=== PATIENT | female | born 1930 | race Caucasian/White ===

== ENCOUNTER 2016-05-25 18:01 | Observation (INO) | payer MEDICARE, BC ==
[2016-05-25] MEDS ORDERED: SODIUM CHLORIDE 0.9% 1,000 ML IV STA ×2 (18:30)
[2016-05-25 18:53] LABS: Basophils # (A) 0.1 k/uL (0-0.2); Basophils % (A) 1 %; CH 34.4; CHCM 34.6; Eosinophils # (A) 0.7 k/uL (0-0.7); Eosinophils % (A) 8 %; HCT 38.1 % (34.0-46.0); HDW 3.06; HGB 13.1 gm/dL (11.4-16.0); Luc # (Auto) 0.18; Luc % (Auto) 2; Lymphocytes # (A) 1.7 k/uL (1.0-4.8); Lymphocytes % (A) 19 %; MCH 34.3 pg (25.0-35.0); MCHC 34.3 g/dL (31.0-37.0); MCV 100.1 fL (80.0-100.0); Macrocytosis Slight; Mean Platelet Volume 8.6; Monocytes # (A) 0.6 k/uL (0-1.0); Monocytes % (A) 7 %; Neutrophils # (A) 5.6 k/uL (1.3-7.7); Neutrophils % (A) 64 %; RBC 3.81 m/uL (3.80-5.40); RDW 14.2 % (11.5-15.5); WBC 8.8 k/uL (3.8-10.6); WBC (Perox) 9.09
[2016-05-25] MEDS ORDERED: MORPHINE SULFATE 4 MG/ML SYRINGE IVP STA (18:55)
--- NOTE | 2016-05-25 18:57 | ED ---
General Adult HPI - General Source: patient, RN notes reviewed, old records reviewed Mode of arrival: wheelchair Limitations: no limitations <Brody Murray - Last Filed: 05/25/16 18:56> <Regino Lewis - Last Filed: 05/25/16 22:35> - General Chief complaint: Weakness Stated complaint: Weakness Time Seen by Provider: 05/25/16 18:55 - History of Present Illness Initial comments: This is a 86-year-old female ER for evaluation of headache weakness heart fluttering not feeling well. He says significant and extensive list of medical core morbidities, patient started with headache for a few days and generally feeling weak decreased appetite and not feeling well. Denies fevers, but is complaining of headache as well. Headaches are today with no modifying factors or pain, denies neurological deficit. Patient is blind, and no new sono New Vision issues, no hearing changes or deficits. No neurological deficits. Patient denies recent fever cough congestion shortness of breath or abdominal pain. (Brody Murray) - Related Data Home Medications Medication Instructions Recorded Confirmed ALPRAZolam [Xanax] 0.25 mg PO HS 12/14/13 05/25/16 Acetaminophen/Diphenhydramine 1 tab PO HS 12/14/13 05/25/16 [Tylenol Pm] Allopurinol [Zyloprim] 300 mg PO DAILY 12/14/13 05/25/16 Aspirin 81 mg PO BID 12/14/13 05/25/16 Insulin NPH Hum/Reg Insulin Hm 15 unit SQ BID 12/14/13 05/25/16 [NovoLIN 70-30 100 UNIT/ML VIAL] Potassium Chloride [K-Tab ER] 10 meq PO DAILY 12/14/13 05/25/16 Simvastatin [Zocor] 80 mg PO DAILY 12/14/13 05/25/16 ALPRAZolam [Xanax] 0.25 mg PO TID PRN 12/15/13 05/25/16 Nitroglycerin Sl Tabs [Nitrostat] 0.4 mg SL Q5M PRN 12/15/13 05/25/16 Albuterol Nebulized [Ventolin 2.5 mg INHALATION RT-TID PRN 05/25/16 05/25/16 Nebulized] Furosemide [Lasix] 40 mg PO DAILY 05/25/16 05/25/16 Allergies Allergy/AdvReac Type Severity Reaction Status Date / Time codeine Allergy Unknown Verified 05/25/16 19:06 hydrochlorothiazide Allergy Rash/Hives Verified 05/25/16 19:06 [From Aldactazide] Iodinated Contrast Media - Allergy Unknown Verified 05/25/16 19:06 Oral and [Iodinated Contrast Media - IV Dye] spironolactone Allergy Rash/Hives Verified 05/25/16 19:06 [From Aldactazide] Review of Systems ROS Other: All systems not noted in ROS Statement are negative. <Brody Murray - Last Filed: 05/25/16 18:56> ROS Other: All systems not noted in ROS Statement are negative. <Regino Lewis - Last Filed: 05/25/16 22:35> ROS Statement: Those systems with pertinent positive or pertinent negative responses have been documented in the HPI. 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 Last Myocardial Infarction Date:: 1986 History of Any Multi-Drug Resistant Organisms: None Reported Past Surgical History: Breast Surgery, Cholecystectomy, Coronary Bypass/CABG, Hysterectomy, Orthopedic Surgery Additional Past Surgical History / Comment(s): . LUMPECTOMY-BENIGN MASS.RT ARM WAS BROKEN HAD ORIF HAS PLATE/SCREWS. carpal tnnel, CATARARCTS. LT CAROTID ENDARTERECTOMY Past Anesthesia/Blood Transfusion Reactions: No Reported Reaction Past Psychological History: No Psychological Hx Reported Smoking Status: Former smoker Past Alcohol Use History: None Reported Additional Past Alcohol Use History / Comment(s): STARTED SMOKING AT AGE 12, SMOKES 1/2 PPD. HAD QUIT FOR 23 YEARS THEN RESTARTED AFTER STROKE WHEN SHE WENT BLIND. Past Drug Use History: None Reported - Past Family History Father Family Medical History: Myocardial Infarction (OK), Pulmonary Embolus Additional Family Medical History / Comment(s): AT AGE 72-STROKE Mother Family Medical History: CVA/TIA Additional Family Medical History / Comment(s): AT AGE 67- CEREBRAL HEMMORAGE <Brody Murray - Last Filed: 05/25/16 18:56> General Exam Limitations: no limitations General appearance: alert, in no apparent distress Head exam: Present: atraumatic, normocephalic, normal inspection Eye exam: Present: normal appearance, PERRL, EOMI. Absent: scleral icterus, conjunctival injection, periorbital swelling ENT exam: Present: normal exam, mucous membranes moist Neck exam: Present: normal inspection. Absent: tenderness, meningismus, lymphadenopathy Respiratory exam: Present: normal lung sounds bilaterally. Absent: respiratory distress, wheezes, rales, rhonchi, stridor Cardiovascular Exam: Present: regular rate, normal rhythm, normal heart sounds. Absent: systolic murmur, diastolic murmur, rubs, gallop, clicks GI/Abdominal exam: Present: soft, normal bowel sounds. Absent: distended, tenderness, guarding, rebound, rigid Extremities exam: Present: normal inspection, full ROM, normal capillary refill. Absent: tenderness, pedal edema, joint swelling, calf tenderness Back exam: Present: normal inspection Neurological exam: Present: alert, oriented X3, CN II-XII intact Psychiatric exam: Present: normal affect, normal mood Skin exam: Present: warm, dry, intact, normal color. Absent: rash <TerriMontanaBrody B - Last Filed: 05/25/16 18:56> <Regino Lewis - Last Filed: 05/25/16 22:35> - General Exam Comments Initial Comments: Patient is blind (CalistaBrody roblero) General: The patient is awake and alert, in no distress, and does not appear acutely ill. Skin: Skin is warm and dry and no rashes or lesions are noted. Eye: Patient is blind Ears, nose, mouth and throat: There are moist mucous membranes and no oral lesions. Neck: The neck is supple, there is no tenderness or JVD. Cardiovascular: There is a regular rate and rhythm. No murmur, rub or gallop is appreciated. Respiratory: To auscultation bilateral, no wheezing no rhonchi no distress respiratory felix noticed Gastrointestinal: Soft, non-distended, non-tender abdomen without masses or organomegaly noted. There is no rebound or guarding present. Bowel sounds are unremarkable. Back: There is no tenderness to palpation in the midline. There is no obvious deformity. Musculoskeletal: Normal ROM, no tenderness, There is no pedal edema. There is no calf tenderness or swelling. No cords were appreciated. Neurological: CN II-XII intact, Cranial nerves III through XII are intact. There are no obvious motor or sensory deficits. Coordination appears grossly intact. Speech is normal. Psychiatric: Cooperative, appropriate mood & affect, normal judgment. (Regino Lewis) Medical Decision Making - Lab Data Result diagrams: 05/25/16 18:41 05/25/16 18:41 <Regino Lewis - Last Filed: 05/25/16 22:35> - Lab Data Lab Results 05/25/16 05/25/16 05/25/16 Range/Units 18:41 18:41 18:41 WBC 8.8 (3.8-10.6) k/uL RBC 3.81 (3.80-5.40) m/uL Hgb 13.1 (11.4-16.0) gm/dL Hct 38.1 (34.0-46.0) % MCV 100.1 H (80.0-100.0) fL MCH 34.3 (25.0-35.0) pg MCHC 34.3 (31.0-37.0) g/dL RDW 14.2 (11.5-15.5) % Plt Count 175 (150-450) k/uL Neutrophils % 64 % Lymphocytes % 19 % Monocytes % 7 % Eosinophils % 8 % Basophils % 1 % Neutrophils # 5.6 (1.3-7.7) k/uL Lymphocytes # 1.7 (1.0-4.8) k/uL Monocytes # 0.6 (0-1.0) k/uL Eosinophils # 0.7 (0-0.7) k/uL Basophils # 0.1 (0-0.2) k/uL Macrocytosis Slight PT (9.0-12.0) sec INR (<1.1) APTT (22.0-30.0) sec Sodium 137 (137-145) mmol/L Potassium 4.4 (3.5-5.1) mmol/L Chloride 101 (98-107) mmol/L Carbon Dioxide 27 (22-30) mmol/L Anion Gap 9 mmol/L BUN 38 H (7-17) mg/dL Creatinine 1.11 H (0.52-1.04) mg/dL Est GFR (MDRD) Af Amer 56 (>60 ml/min/1.73 sqM) Est GFR (MDRD) Non-Af 46 (>60 ml/min/1.73 sqM) Glucose 236 H (74-99) mg/dL POC Glucose (mg/dL) (75-99) mg/dL POC Glu Evp Operations ID Plasma Lactic Acid Jorgito (0.7-2.0) mmol/L Calcium 9.1 (8.4-10.2) mg/dL Phosphorus 3.6 (2.5-4.5) mg/dL Magnesium 1.9 (1.6-2.3) mg/dL Total Bilirubin 0.5 (0.2-1.3) mg/dL AST 30 (14-36) U/L ALT 25 (9-52) U/L Alkaline Phosphatase 81 (38-126) U/L Total Creatine Kinase 42 (30-135) U/L CK-MB (CK-2) 1.3 (0.0-2.4) ng/mL CK-MB (CK-2) Rel Index 3.1 Troponin I <0.012 (0.000-0.034) ng/mL NT-Pro-B Natriuret Pep pg/mL Total Protein 7.0 (6.3-8.2) g/dL Albumin 3.9 (3.5-5.0) g/dL TSH 1.680 (0.465-4.680) mIU/L Urine Color Urine Appearance (Clear) Urine pH (5.0-8.0) Ur Specific [place] (1.001-1.035) Urine Protein (Negative) Urine Glucose (UA) (Negative) Urine Ketones (Negative) Urine Blood (Negative) Urine Nitrate (Negative) Urine Bilirubin (Negative) Urine Urobilinogen (<2.0) mg/dL Ur Leukocyte Esterase (Negative) Influenza Type A RNA (Not Detectd) Influenza Type B (PCR) (Not Detectd) 05/25/16 05/25/16 05/25/16 Range/Units 18:41 18:41 18:41 WBC (3.8-10.6) k/uL RBC (3.80-5.40) m/uL Hgb (11.4-16.0) gm/dL Hct (34.0-46.0) % MCV (80.0-100.0) fL MCH (25.0-35.0) pg MCHC (31.0-37.0) g/dL RDW (11.5-15.5) % Plt Count (150-450) k/uL Neutrophils % % Lymphocytes % % Monocytes % % Eosinophils % % Basophils % % Neutrophils # (1.3-7.7) k/uL Lymphocytes # (1.0-4.8) k/uL Monocytes # (0-1.0) k/uL Eosinophils # (0-0.7) k/uL Basophils # (0-0.2) k/uL Macrocytosis PT 11.1 (9.0-12.0) sec INR 1.1 (<1.1) APTT 23.6 (22.0-30.0) sec Sodium (137-145) mmol/L Potassium (3.5-5.1) mmol/L Chloride (98-107) mmol/L Carbon Dioxide (22-30) mmol/L Anion Gap mmol/L BUN (7-17) mg/dL Creatinine (0.52-1.04) mg/dL Est GFR (MDRD) Af Amer (>60 ml/min/1.73 sqM) Est GFR (MDRD) Non-Af (>60 ml/min/1.73 sqM) Glucose (74-99) mg/dL POC Glucose (mg/dL) (75-99) mg/dL POC Glu Evp Operations ID Plasma Lactic Acid Jorgito 0.9 (0.7-2.0) mmol/L Calcium (8.4-10.2) mg/dL Phosphorus (2.5-4.5) mg/dL Magnesium (1.6-2.3) mg/dL Total Bilirubin (0.2-1.3) mg/dL AST (14-36) U/L ALT (9-52) U/L Alkaline Phosphatase (38-126) U/L Total Creatine Kinase (30-135) U/L CK-MB (CK-2) (0.0-2.4) ng/mL CK-MB (CK-2) Rel Index Troponin I (0.000-0.034) ng/mL NT-Pro-B Natriuret Pep 902 pg/mL Total Protein (6.3-8.2) g/dL Albumin (3.5-5.0) g/dL TSH (0.465-4.680) mIU/L Urine Color Urine Appearance (Clear) Urine pH (5.0-8.0) Ur Specific [place] (1.001-1.035) Urine Protein (Negative) Urine Glucose (UA) (Negative) Urine Ketones (Negative) Urine Blood (Negative) Urine Nitrate (Negative) Urine Bilirubin (Negative) Urine Urobilinogen (<2.0) mg/dL Ur Leukocyte Esterase (Negative) Influenza Type A RNA (Not Detectd) Influenza Type B (PCR) (Not Detectd) 05/25/16 05/25/16 05/25/16 Range/Units 19:30 19:30 20:45 WBC (3.8-10.6) k/uL RBC (3.80-5.40) m/uL Hgb (11.4-16.0) gm/dL Hct (34.0-46.0) % MCV (80.0-100.0) fL MCH (25.0-35.0) pg MCHC (31.0-37.0) g/dL RDW (11.5-15.5) % Plt Count (150-450) k/uL Neutrophils % % Lymphocytes % % Monocytes % % Eosinophils % % Basophils % % Neutrophils # (1.3-7.7) k/uL Lymphocytes # (1.0-4.8) k/uL Monocytes # (0-1.0) k/uL Eosinophils # (0-0.7) k/uL Basophils # (0-0.2) k/uL Macrocytosis PT (9.0-12.0) sec INR (<1.1) APTT (22.0-30.0) sec Sodium (137-145) mmol/L Potassium (3.5-5.1) mmol/L Chloride (98-107) mmol/L Carbon Dioxide (22-30) mmol/L Anion Gap mmol/L BUN (7-17) mg/dL Creatinine (0.52-1.04) mg/dL Est GFR (MDRD) Af Amer (>60 ml/min/1.73 sqM) Est GFR (MDRD) Non-Af (>60 ml/min/1.73 sqM) Glucose (74-99) mg/dL POC Glucose (mg/dL) 198 H (75-99) mg/dL POC Glu Evp Operations ID Daisha Duran Plasma Lactic Acid Jorgito (0.7-2.0) mmol/L Calcium (8.4-10.2) mg/dL Phosphorus (2.5-4.5) mg/dL Magnesium (1.6-2.3) mg/dL Total Bilirubin (0.2-1.3) mg/dL AST (14-36) U/L ALT (9-52) U/L Alkaline Phosphatase (38-126) U/L Total Creatine Kinase (30-135) U/L CK-MB (CK-2) (0.0-2.4) ng/mL CK-MB (CK-2) Rel Index Troponin I (0.000-0.034) ng/mL NT-Pro-B Natriuret Pep pg/mL Total Protein (6.3-8.2) g/dL Albumin (3.5-5.0) g/dL TSH (0.465-4.680) mIU/L Urine Color Light Yellow Urine Appearance Clear (Clear) Urine pH 6.0 (5.0-8.0) Ur Specific [place] 1.006 (1.001-1.035) Urine Protein Trace H (Negative) Urine Glucose (UA) 1+ H (Negative) Urine Ketones Negative (Negative) Urine Blood Negative (Negative) Urine Nitrate Negative (Negative) Urine Bilirubin Negative (Negative) Urine Urobilinogen <2.0 (<2.0) mg/dL Ur Leukocyte Esterase Negative (Negative) Influenza Type A RNA Not Detected (Not Detectd) Influenza Type B (PCR) Detected H (Not Detectd) Critical Care Time <Brody Murray - Last Filed: 05/25/16 18:56> Total Critical Care Time: 45 <Regino Lewis - Last Filed: 05/25/16 22:35> Critical Care Time: Blood pressure was quite high, reviewed all her labs head CT head CT showed atrophy and then normal pressure hydrocephalus this was discussed with the Dr. Lima, on-call neurologist, if symptoms are quite chronic she has incontinence for over 2 years that Clarence agreed to see her in the morning she had the hydralazine earlier but didn't quite help her migraine given another dose of hydralazine 10 mg IV she was watched in and admitted the [facility] 10 PM her blood pressure systolic dropped to normal was 140 systolic and we also ordered that her flu B is positive she was given a Tamiflu in the DrShon Wilson to see her in the morning for normal pressure hydrocephalus told by definition she does not quite fit and they are all 3 symptoms are not quite crisply confounded her urinary incontinence is ongoing for about 2 years she does not have a dementia and gait disturbance ? (Regino Lewis) Disposition <Brody Murray - Last Filed: 05/25/16 18:56> <Regino Lewis - Last Filed: 05/25/16 22:35> Clinical Impression: Headache, Hypertension, Normal pressure hydrocephalus Disposition: ADMITTED IP TO THIS [facility] Condition: Good Referrals: Barry Marx Jr, DO [Primary Care Provider] - 1-2 days
[2016-05-25 19:01] LABS: INR 1.1 (<1.1); Partial Thromboplastin Time 23.6 sec (22.0-30.0); Prothrombin Time 11.1 sec (9.0-12.0)
[2016-05-25 19:05] LABS: Calcium 9.1 mg/dL (8.4-10.2); Magnesium 1.9 mg/dL (1.6-2.3); Phosphorous 3.6 mg/dL (2.5-4.5); Potassium 4.4 mmol/L (3.5-5.1); Total Bilirubin 0.5 mg/dL (0.2-1.3)
[2016-05-25] MEDS: hydrALAZINE HCL 20 MG/ML 1 ML VIAL IVP STA ×2 (19:10→20:10)
[2016-05-25 19:11] LABS: Creatine Kinase 42 U/L (30-135)
[2016-05-25 19:25] LABS: Creatine Kinase MB 1.3 ng/mL (0.0-2.4); Troponin I <0.012 ng/mL (0.000-0.034)
[2016-05-25 19:46] LABS: Appearance,Urine Clear (Clear); Bilirubin,Urine Negative (Negative); Glucose,Urine (UA) 1+ (Negative); Ketones,Urine Negative (Negative); Leukocyte Esterase,Urine Negative (Negative); Nitrite,Urine Negative (Negative); Protein,Urine Trace (Negative); Specific Gravity,Urine 1.006 (1.001-1.035); UA Billing (MACRO vs. MICRO) CHEM; Urobilinogen,Urine <2.0 mg/dL (<2.0)
--- NOTE | 2016-05-25 20:09 | CT ---
EXAMINATION TYPE: CT brain wo con DATE OF EXAM: 05/25/2016 8:03 PM COMPARISON: NONE HISTORY: Weakness, headache and hypertension. CT DLP: 1135.00 mGycm Automated exposure control for dose reduction was used. FINDINGS: There is cerebral cortical atrophy. There is no mass effect nor midline shift. There is no sign of in tracranial hemorrhage. There is mild enlargement of the ventricles. There is a mucous retention cyst in the left maxillary sinus. 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 No acute intracranial abnormality.
[2016-05-25] MEDS ORDERED: hydrALAZINE HCL 20 MG/ML 1 ML VIAL IVP STA (20:27)
[2016-05-25] MEDS ORDERED: amLODIPine 5 MG TAB PO STA (20:28)
[2016-05-25] MEDS ORDERED: OSELTAMIVIR 75 MG CAP PO STA (20:28)
[2016-05-25 20:47] LABS: Glucose,Whole Blood 198 mg/dL (75-99)
[2016-05-25] MEDS ORDERED: NALOXONE 0.4 MG/ML 1 ML VIAL IV PRN (22:35)
[2016-05-25] MEDS ORDERED: ACETAMINOPHEN TAB 325 MG TAB PO PRN (22:35)
[2016-05-25] MEDS ORDERED: ALPRAZolam 0.25 MG TAB PO PRN (22:44)
[2016-05-25] MEDS ORDERED: ALBUTEROL NEBULIZED 2.5 MG/3 ML INHALATION PRN (22:44)
[2016-05-25] MEDS ORDERED: hydrALAZINE HCL 20 MG/ML 1 ML VIAL IVP PRN (23:31)
[2016-05-26 04:41] LABS: Glucose,Whole Blood 204 mg/dL (75-99)
[2016-05-26] MEDS: NICOTINE 14MG/24HR PATCH TRANSDERM SCH (08:39)
[2016-05-26] MEDS: INSULIN NPH/REG INSULIN 70/30 300 UNIT/3 ML VIAL SQ SCH ×2 (08:40→21:54)
[2016-05-26] MEDS: ALLOPURINOL 300 MG TAB PO SCH (08:40)
[2016-05-26] MEDS: ASPIRIN 81 MG CHEW PO SCH ×2 (08:40→23:33)
[2016-05-26] MEDS: POTASSIUM CHLORIDE ER 10 MEQ TAB.ER.PRT PO SCH (08:40)
[2016-05-26] MEDS: FUROSEMIDE 40 MG TAB PO SCH (08:40)
[2016-05-26] MEDS: ATORVASTATIN 40 MG TAB PO SCH (08:40)
--- NOTE | 2016-05-26 08:48 | P.CNNES ---
History of Present Illness Consult date: 05/26/16 Reason for Consult: Patient with possible NPH and dizziness. History of Present Illness: This patient is a 86-year-old right-handed white female who was brought into the emergency room yesterday with symptoms of generalized weakness and headache. [place] [facility] [place] nurse come to her home 3-4 days a week. She has been managing so far independently on her own. She is legally blind and does get around very slowly at home. Apparently she was just not feeling well and felt confused yesterday and was having difficulty getting up and moving. She was also complaining of a headache. She was brought into the emergency room yesterday and was evaluated by Dr. Lewis. Laboratory testing was performed and they all appear to be in normal range. There was no obvious evidence of urinary tract infection. She does have a history of cardiac arrhythmias in the past and does follow in the cardiology clinic with Dr. Gonzalez. She is scheduled to be seen in the cardiology clinic in a couple weeks. Patient was evaluated for possibility of influenza A and B both of which came back negative. She was sent for a computed tomography scan of the brain for further evaluation. CAT scan reveals cerebral atrophy and possible mild normal pressure-type hydrocephalus. There is no evidence of acute stroke or hemorrhage. The patient did have evidence of hypertensive urgency on admission to the ER with a blood pressure reading of 221 /90. She was treated with hydralazine following which her headaches did significantly improved. Her EKG in the ER showed a first-degree AV block which is to be further evaluated by cardiology. The patient this morning is resting very comfortably. She is legally blind. She states that she has been having urinary incontinence for over 2 years. We did review the actual CAT scan of the brain films today which reveals only minimal ventriculomegaly. This is not consistent with normal pressure hydrocephalus. The patient does not have any evidence of underlying dementia or gait apraxia. Her headaches have significantly improved after she was treated for hypertensive urgency in the ER yesterday. The patient does not have classical triad of dementia, gait apraxia , or urinary incontinence to fit the full criteria for normal pressure hydrocephalus. Again review of her actual CAT scan films reveals only mild ventricular enlargement with some evidence of frontal lobe atrophy. The patient does not have any evidence of underlying dementia. At this time we do not feel the patient has clinical findings of NPH at this time. The patient is resting comfortably today. We would suggest possible cardiology consultation given her cardiac findings and uncontrolled hypertension. She is doing better this morning with a blood pressure reading of 159/68. The patient does have a remote history of stroke and chronic low back pain in the past. She was last seen in the neurology clinic around 2012 and apparently has been doing fairly well with these other medical issues. The patient is now admitted and neurology has been consulted for further evaluation and recommendations. Review of Systems Constitutional: Denies chills, Denies fever Eyes: denies blurred vision, denies pain Ears, nose, mouth and throat: Denies headache, Denies sore throat Cardiovascular: Denies chest pain, Denies shortness of breath Respiratory: Denies cough Gastrointestinal: Denies abdominal pain, Denies diarrhea, Denies nausea, Denies vomiting Genitourinary: Denies dysuria, Denies hematuria Musculoskeletal: Denies myalgias Integumentary: Denies pruritus, Denies rash Neurological: Reports headaches, Reports loss of vision, Reports tremors, Denies numbness, Denies weakness Psychiatric: Denies anxiety, Denies depression Endocrine: Denies fatigue, Denies weight change Past Medical History Past Medical History: Coronary Artery Disease (CAD), Chest Pain / Angina, Heart Failure, COPD, CVA/TIA, Diabetes Mellitus, Eye Disorder, GI Bleed, Hyperlipidemia, Hypertension, Myocardial Infarction ([place]), Renal Disease Additional Past Medical History / Comment(s): (blind AFTER STROKE) .X2 ,GOUT, ABD HERNIA,URINARY INCONT.PVD, RT CAROTID BLOCKAGE-PT STATED NOT A SX CADIDATE. Last Myocardial Infarction Date:: 1986 History of Any Multi-Drug Resistant Organisms: None Reported Past Surgical History: Breast Surgery, Cholecystectomy, Coronary Bypass/CABG, Hysterectomy, Orthopedic Surgery Additional Past Surgical History / Comment(s): . LUMPECTOMY-BENIGN MASS.RT ARM WAS BROKEN HAD ORIF HAS PLATE/SCREWS. carpal tnnel, CATARARCTS. LT CAROTID ENDARTERECTOMY Past Anesthesia/Blood Transfusion Reactions: No Reported Reaction Past Psychological History: No Psychological Hx Reported Smoking Status: Former smoker Past Alcohol Use History: None Reported Additional Past Alcohol Use History / Comment(s): STARTED SMOKING AT AGE 12, SMOKES 1/2 PPD. HAD QUIT FOR 23 YEARS THEN RESTARTED AFTER STROKE WHEN SHE WENT BLIND. Past Drug Use History: None Reported - Past Family History Father Family Medical History: Myocardial Infarction ([place]), Pulmonary Embolus Additional Family Medical History / Comment(s): AT AGE 72-STROKE Mother Family Medical History: CVA/TIA Additional Family Medical History / Comment(s): AT AGE 67- CEREBRAL HEMMORAGE Medications and Allergies Home Medications Medication Instructions Recorded Confirmed Type ALPRAZolam [Xanax] 0.25 mg PO HS 12/14/13 05/25/16 History Acetaminophen/Diphenhydramine 1 tab PO HS 12/14/13 05/25/16 History [Tylenol Pm] Allopurinol [Zyloprim] 300 mg PO DAILY 12/14/13 05/25/16 History Aspirin 81 mg PO BID 12/14/13 05/25/16 History Insulin NPH Hum/Reg Insulin Hm 15 unit SQ BID 12/14/13 05/25/16 History [NovoLIN 70-30 100 UNIT/ML VIAL] Potassium Chloride [K-Tab ER] 10 meq PO DAILY 12/14/13 05/25/16 History Simvastatin [Zocor] 80 mg PO DAILY 12/14/13 05/25/16 History ALPRAZolam [Xanax] 0.25 mg PO TID PRN 12/15/13 05/25/16 History Nitroglycerin Sl Tabs [Nitrostat] 0.4 mg SL Q5M PRN 12/15/13 05/25/16 History Albuterol Nebulized [Ventolin 2.5 mg INHALATION RT-TID PRN 05/25/16 05/25/16 History Nebulized] Furosemide [Lasix] 40 mg PO DAILY 05/25/16 05/25/16 History Allergies Allergy/AdvReac Type Severity Reaction Status Date / Time codeine Allergy Unknown Verified 05/25/16 19:06 hydrochlorothiazide Allergy Rash/Hives Verified 05/25/16 19:06 [From Aldactazide] Iodinated Contrast Media - Allergy Unknown Verified 05/25/16 19:06 Oral and [Iodinated Contrast Media - IV Dye] spironolactone Allergy Rash/Hives Verified 05/25/16 19:06 [From Aldactazide] Physical Examination - Vital Signs Vital Signs: Vital Signs Temp Pulse Pulse Pulse Resp BP BP 05/26/16 07:00 97.4 F L 59 L 18 159/68 02/28/17 02:23 65 19 149/72 05/25/16 23:53 97.3 F L 76 19 153/66 05/25/16 23:02 97.7 F 82 18 143/72 Pulse Ox 05/26/16 07:00 99 05/26/16 02:23 100 05/25/16 23:53 100 05/25/16 23:02 96 Intake and Output 05/25/16 05/26/16 05/26/16 22:59 06:59 14:59 Other: Voiding Method Bedside Commode # Voids 1 - Constitutional General appearance: average body habitus, cooperative - EENT EENT: PERRL, mucous membranes moist - Respiratory Respiratory: lungs clear, normal breath sounds - Cardiovascular Cardiovascular: regular rate, normal S1, normal S2 Extremities: no peripheral edema bilaterally - Gastrointestinal Gastrointestinal: normoactive bowel sounds - Integumentary Integumentary: normal - Neurologic Cranial nerve examination: PERRL, V1/V2/V3 grossly intact, face symmetric, tongue midline, intact shoulder shrug, intact gag reflex, intact corneal reflex , normal palatal elevation Speech examination: intact Sensorimotor examination: intact Detailed motor examination: grossly full strength in all extremities Detailed sensory examination: intact Reflex and gait examination: intact Reflexes: 1+: ankle, bicep, knee, tricep - Musculoskeletal Musculoskeletal: no pain - Psychiatric Psychiatric: mood/affect appropriate, cooperative Results - Laboratory Findings CBC and BMP: 05/25/16 18:41 05/25/16 18:41 Abnormal Lab Findings: Abnormal Labs 05/26/16 04:37 POC Glucose (mg/dL) 204 H Assessment and Plan (1) Hypertensive encephalopathy Status: Acute Code(s): I67.4 - HYPERTENSIVE ENCEPHALOPATHY (2) Cerebral ventriculomegaly Status: Acute Code(s): G93.89 - OTHER SPECIFIED DISORDERS OF BRAIN (3) History of stroke Status: Acute Code(s): Z86.73 - PRSNL HX OF TIA (TIA), AND CEREB INFRC W/O RESID DEFICITS (4) Hypertension Status: Acute Code(s): I10 - ESSENTIAL (PRIMARY) HYPERTENSION Plan: This patient is a 86-year-old right-handed white female who was admitted to hospital yesterday with symptoms of weakness and headache. She was brought into the emergency room and was seen by Dr. Joshua for further assessment. Patient was found to have evidence of hypertensive urgency with a blood pressure reading initially up to 21/90. She was treated with hydralazine for this condition. She was sent for a computed tomography scan of the brain which revealed evidence of atrophy and questionable normal pressure-type hydrocephalus. The actual CAT scan films were reviewed today and there is no evidence to suggest acute normal pressure hydrocephalus or obstructive hydrocephalus. Her CAT scan reveals mild ventriculomegaly consistent with the degree of cortical atrophy of the brain. There was evidence of mild frontal lobe atrophy noted with some hygromas seen bilaterally. Patient does not have classical triad for NPH. Her symptoms seem to be more related to hypertensive encephalopathy on admission due to the uncontrolled hypertension. She is doing much better this morning. Would consider cardiology consultation. Neurologically she is nonfocal on examination at this time. Patient is legally blind but is been managing at home with assistance from [employer]. We would recommend social work for further evaluation of her home situation. We will continue close neurological follow-up for this patient. Her overall prognosis at this time remains guarded. Time with Patient: Greater than 30
[2016-05-26] MEDS ORDERED: OSELTAMIVIR 75 MG CAP PO SCH (09:00)
[2016-05-26 11:35] LABS: Glucose,Whole Blood 190 mg/dL (75-99)
[2016-05-26] MEDS: amLODIPine 5 MG TAB PO SCH (13:26)
--- NOTE | 2016-05-26 13:41 | P.HPIM ---
History of Present Illness H&P Date: 05/26/16 Chief Complaint: Uncontrolled blood pressure, headache Patient is an 86-year-old female, patient of Dr. Marx in the outpatient setting, with medical history significant for coronary artery disease , heart failure, COPD, CVA, diabetes mellitus type 2, hyperlipidemia, hypertension, myocardial infarction, gout, urinary tract infection, peripheral vascular disease, right carotid blockage, and legally blind. Patient presented to the emergency department with complains of generalized weakness, decreased appetite, and not feeling well. Patient also complains of headaches for the last 2 days. No history of other neurological deficits. No history of chills, fevers, nausea, vomiting, cough, shortness of breath, or abdominal pain. CAT scan of the brain with evidence of mild enlargement of the ventricles and normal pressure type hydrocephalus with no other acute intracranial left dermatology. Patient did test positive for influenza B. Blood pressure was noted to be elevated at 221/90 upon arrival which improved with IV hydralazine and IV morphine. Patient was admitted to the medical floor with consult to neurology service and cardiology service. Upon examination, patient is feeling better. Patient currently denies headache, nausea, vomiting, shortness of breath, chest pain, abdominal pain. Patient reports fair appetite. No fevers. Blood pressure 159/68. Patient has been getting up to the commode with assist. Past Medical History Past Medical History: Coronary Artery Disease (CAD), Chest Pain / Angina, Heart Failure, COPD, CVA/TIA, Diabetes Mellitus, Eye Disorder, GI Bleed, Hyperlipidemia, Hypertension, Myocardial Infarction ([place]), Renal Disease Additional Past Medical History / Comment(s): (blind AFTER STROKE) .X2 ,GOUT, ABD HERNIA,URINARY INCONT.PVD, RT CAROTID BLOCKAGE-PT STATED NOT A SX CADIDATE. Last Myocardial Infarction Date:: 1986 History of Any Multi-Drug Resistant Organisms: None Reported Past Surgical History: Breast Surgery, Cholecystectomy, Coronary Bypass/CABG, Hysterectomy, Orthopedic Surgery Additional Past Surgical History / Comment(s): . LUMPECTOMY-BENIGN MASS.RT ARM WAS BROKEN HAD ORIF HAS PLATE/SCREWS. carpal tnnel, CATARARCTS. LT CAROTID ENDARTERECTOMY Past Anesthesia/Blood Transfusion Reactions: No Reported Reaction Past Psychological History: No Psychological Hx Reported Smoking Status: Former smoker Past Alcohol Use History: None Reported Additional Past Alcohol Use History / Comment(s): STARTED SMOKING AT AGE 12, SMOKES 1/2 PPD. HAD QUIT FOR 23 YEARS THEN RESTARTED AFTER STROKE WHEN SHE WENT BLIND. Past Drug Use History: None Reported - Past Family History Father Family Medical History: Myocardial Infarction ([place]), Pulmonary Embolus Additional Family Medical History / Comment(s): AT AGE 72-STROKE Mother Family Medical History: CVA/TIA Additional Family Medical History / Comment(s): AT AGE 67- CEREBRAL HEMMORAGE Medications and Allergies Home Medications Medication Instructions Recorded Confirmed Type ALPRAZolam [Xanax] 0.25 mg PO HS 12/14/13 05/25/16 History Acetaminophen/Diphenhydramine 1 tab PO HS 12/14/13 05/25/16 History [Tylenol Pm] Allopurinol [Zyloprim] 300 mg PO DAILY 12/14/13 05/25/16 History Aspirin 81 mg PO BID 12/14/13 05/25/16 History Insulin NPH Hum/Reg Insulin Hm 15 unit SQ BID 12/14/13 05/25/16 History [NovoLIN 70-30 100 UNIT/ML VIAL] Potassium Chloride [K-Tab ER] 10 meq PO DAILY 12/14/13 05/25/16 History Simvastatin [Zocor] 80 mg PO DAILY 12/14/13 05/25/16 History ALPRAZolam [Xanax] 0.25 mg PO TID PRN 12/15/13 05/25/16 History Nitroglycerin Sl Tabs [Nitrostat] 0.4 mg SL Q5M PRN 12/15/13 05/25/16 History Albuterol Nebulized [Ventolin 2.5 mg INHALATION RT-TID PRN 05/25/16 05/25/16 History Nebulized] Furosemide [Lasix] 40 mg PO DAILY 05/25/16 05/25/16 History Allergies Allergy/AdvReac Type Severity Reaction Status Date / Time codeine Allergy Unknown Verified 05/25/16 19:06 hydrochlorothiazide Allergy Rash/Hives Verified 05/25/16 19:06 [From Aldactazide] Iodinated Contrast Media - Allergy Unknown Verified 05/25/16 19:06 Oral and [Iodinated Contrast Media - IV Dye] spironolactone Allergy Rash/Hives Verified 05/25/16 19:06 [From Aldactazide] Physical Exam Vitals: Vital Signs Temp Pulse Pulse Pulse Resp BP BP 05/26/16 09:04 05/26/16 07:00 97.4 F L 59 L 18 159/68 05/26/16 02:23 65 19 149/72 05/25/16 23:53 97.3 F L 76 19 153/66 05/25/16 23:02 97.7 F 82 18 143/72 Pulse Ox 05/26/16 09:04 94 L 05/26/16 07:00 99 05/26/16 02:23 100 05/25/16 23:53 100 05/25/16 23:02 96 Intake and Output 05/25/16 05/26/16 05/26/16 22:59 06:59 14:59 Other: Voiding Method Bedside Commode # Voids 1 GENERAL: Pt awake and alert, lying in bed, well-nourished, and in no acute distress. HEAD: Atraumatic, normocephalic. EYES: Pupils equal and round. Sclera anicteric, conjunctiva are normal. ENT: Moist mucous membranes. Tongue smooth, pink, no lesions, protrudes in midline. NECK: Supple without lymphadenopathy or JVD. LUNGS: Breath sounds clear to auscultation bilaterally. No wheezes, rales, or rhonchi. HEART: Heart S1, S2, no S3 or S4. Regular rate and rhythm. No murmurs, rubs or gallops. ABDOMEN: Soft, nontender, nondistended, normoactive bowel sounds. No guarding, no rebound. EXTREMITIES: Palpable peripheral pulses. No edema. No calf tenderness. NEUROLOGICAL: Pt oriented x 3. No focal deficits. Strength and sensation grossly intact. PSYCH: Normal mood, normal affect. SKIN: Warm, dry, intact. Normal turgor. Results CBC & Chem 7: 05/25/16 18:41 05/25/16 18:41 Labs: Abnormal Lab Results - Last 24 Hours (Table) 05/26/16 05/26/16 Range/Units 04:37 11:33 POC Glucose (mg/dL) 204 H 190 H (75-99) mg/dL CT Scan - head: report reviewed Thrombosis Risk Factor Assmnt - DVT/VTE Prophylaxis DVT/VTE Prophylaxis: Pharmacologic Prophylaxis ordered, Mechanical Prophylaxis ordered - Choose All That Apply Any of the Below Risk Factors Present?: No Other Risk Factors: Yes Each Risk Factor Represents 3 Points: Age 75 years or older Other congenital or acquired thrombophilia - If yes, enter type in comment: No Thrombosis Risk Factor Assessment Total Risk Factor Score: 3 Assessment and Plan Plan: Impression and plan: 1. Hypertensive urgency, present on admission. Cardiology consult in place, recommendations pending. 2. Influenza B. Continue Tamiflu. 3. Cerebral ventriculomegaly with history of headache. Neurology consult in place, recommendations noted. Patient does not have classical triad for NPH. 4. Chronic renal failure, stage III. 5. Type 2 diabetes mellitus, insulin-dependent. Continue Accu-Cheks before meals at bedtime with Humalog sliding scale and Humulin 70/30 15 units subcu twice a day. 6. Hypertension. Norvasc 5 mg by mouth daily has been started by cardiology. 7. Coronary artery disease with history of coronary artery bypass grafting. Continue aspirin 81 mg twice a day. 8. Heart failure, type unknown. Echocardiogram pending. Continue Lasix 40 mg by mouth daily. 9. Hyperlipidemia. Continue Lipitor 40 mg by mouth daily. 10. History of gout. Continue allopurinol 300 mg by mouth daily. 11. History of CVA. 12. Legally blind. 13. History of myocardial infarction. 14. History of urinary incontinence. 15. History of peripheral vascular disease. 16. History of right carotid blockage, patient nonsurgical candidate. 17. Nicotine dependence. 18. DVT prophylaxis. Continue heparin subcu and pneumatic compression sleeves to bilateral lower extremities. 19. GI prophylaxis. Continue Pepcid. 20. Repeat CBC and BMP in a.m. The above impression and plan have been discussed and directed by Dr. Patel. Rustam ALDANA acting as scribe for Dr. Patel.
[2016-05-26] MEDS: INSULIN LISPRO (humaLOG) 300 UNIT/3 ML VIAL SQ SCH ×2 (17:20→21:54)
[2016-05-26 17:21] LABS: Glucose,Whole Blood 236 mg/dL (75-99)
--- NOTE | 2016-05-26 17:51 | CONS ---
DATE OF CONSULTATION: Ms. Lam is an 86-year-old female who is seen for cardiac evaluation. Patient's medical chart is reviewed. This patient came with the complaint of headache for a few days with generalized weakness and some fluttering. Patient did not have any chest pain. In the emergency room patient's blood pressure was significantly elevated. The patient denies any shortness of breath, chest pain. Patient has a known history of coronary artery disease. Patient is blind. She lives alone and is functionally independent. Patient's home medications include: 1. Ventolin. 2. Lasix. 3. Xanax. 4. Zocor. 5. Zyloprim. 6. Possibly atenolol. Past medical history includes: 1. History of coronary artery disease. 2. History of stroke. 3. Coronary artery bypass surgery. 4. Hysterectomy. 5. Cholecystectomy. 6. Breast surgery. Physical examination at present reveals an 86-year-old female who does not appear to be in any acute distress. Patient blood pressure now is 154/67 mmHg. Patient's blood pressure was 221/90 on admission. Heart rate is 72 per minute, respiratory rate 18 and it is non-labored. Head/ENT examination is negative. Neck is supple. There is no increase in jugular venous pressure. Both the carotid pulses are felt. There is no bruit. Chest is symmetrical. HEART: The PMI is not felt. First and second heart sounds are normal. There is no evidence of any murmur. Lungs are clinically clear to auscultation and percussion. Abdomen is soft. EXTREMITIES: There is no evidence of any leg edema. EKG shows normal sinus rhythm without any acute ischemic changes. FINAL IMPRESSION: 1. This patient came with headache and weakness. Patient's systolic blood pressure was elevated, which is improved now. Patient's headache is also improved. 2. Patient has stable coronary artery disease without any significant angina. RECOMMENDATIONS: I will start the patient on amlodipine 5 mg daily. Echo and Doppler study will be done.
[2016-05-26] MEDS ORDERED: diphenhydrAMINE 25 MG CAP PO SCH (21:00)
[2016-05-26 21:17] LABS: Glucose,Whole Blood 168 mg/dL (75-99)
[2016-05-26] MEDS: ALPRAZolam 0.25 MG TAB PO SCH (21:53)
[2016-05-26] MEDS: diphenhydrAMINE 25 MG CAP PO SCH (21:53)
[2016-05-26] MEDS: HEPARIN SODIUM,PORCINE 5,000 UNIT/ML 1 ML VIAL SQ SCH (21:53)
[2016-05-27 07:17] LABS: Glucose,Whole Blood 54 mg/dL (75-99)
[2016-05-27] MEDS: INSULIN LISPRO (humaLOG) 300 UNIT/3 ML VIAL SQ SCH ×4 (07:21→21:57)
[2016-05-27 07:32] LABS: Glucose,Whole Blood 85 mg/dL (75-99)
[2016-05-27 07:55] VITALS: RESP 16
[2016-05-27 09:14] LABS: Basophils # (A) 0.1 k/uL (0-0.2); Basophils % (A) 1 %; CH 33.5; Eosinophils # (A) 0.3 k/uL (0-0.7); Eosinophils % (A) 4 %; HCT 37.9 % (34.0-46.0); HDW 3.02; HGB 12.5 gm/dL (11.4-16.0); Luc # (Auto) 0.09; Luc % (Auto) 1; Lymphocytes # (A) 1.5 k/uL (1.0-4.8); Lymphocytes % (A) 19 %; MCH 33.7 pg (25.0-35.0); MCHC 32.9 g/dL (31.0-37.0); MCV 102.3 fL (80.0-100.0); Macrocytosis Slight; Monocytes # (A) 0.4 k/uL (0-1.0); Monocytes % (A) 5 %; Neutrophils # (A) 5.7 k/uL (1.3-7.7); Neutrophils % (A) 71 %; RBC 3.71 m/uL (3.80-5.40); RDW 14.3 % (11.5-15.5); WBC (Perox) 8.35
[2016-05-27] MEDS: FUROSEMIDE 40 MG TAB PO SCH (09:22)
[2016-05-27] MEDS: POTASSIUM CHLORIDE ER 10 MEQ TAB.ER.PRT PO SCH (09:22)
[2016-05-27] MEDS: FAMOTIDINE 20 MG TAB PO SCH (09:22)
[2016-05-27] MEDS: amLODIPine 5 MG TAB PO SCH (09:22)
[2016-05-27] MEDS: ATORVASTATIN 40 MG TAB PO SCH (09:22)
[2016-05-27] MEDS: ASPIRIN 81 MG CHEW PO SCH ×2 (09:22→21:57)
[2016-05-27] MEDS: NICOTINE 14MG/24HR PATCH TRANSDERM SCH (09:22)
[2016-05-27] MEDS: ALLOPURINOL 300 MG TAB PO SCH (09:22)
[2016-05-27] MEDS: INSULIN NPH/REG INSULIN 70/30 300 UNIT/3 ML VIAL SQ SCH ×2 (09:24→21:59)
[2016-05-27] MEDS: HEPARIN SODIUM,PORCINE 5,000 UNIT/ML 1 ML VIAL SQ SCH ×2 (09:24→21:57)
[2016-05-27 09:25] LABS: Anion Gap 9 mmol/L; Blood Urea Nitrogen 31 mg/dL (7-17); Calcium 8.7 mg/dL (8.4-10.2); Carbon Dioxide 26 mmol/L (22-30); Chloride 103 mmol/L (98-107); Cholesterol 140 mg/dL (<200); Glucose 212 mg/dL (74-99); HDL Cholesterol 69 mg/dL (40-60); Non-African American GFR(MDRD) 51 (>60 ml/min/1.73 sqM); Potassium 4.2 mmol/L (3.5-5.1); Sodium 138 mmol/L (137-145); Triglycerides 86 mg/dL (<150)
[2016-05-27] MEDS: OSELTAMIVIR 60 MG/10 ML ORAL SYRINGE PO SCH (09:54)
--- NOTE | 2016-05-27 11:04 | ECHOF ---
Referral Reason:hypertension MEASUREMENTS -------- HEIGHT: 127.0 cm WEIGHT: 44.0 kg BP: IVSd: 0.8 cm (0.6 - 1.1) LVIDd: 4.0 cm (3.9 - 5.3) LVPWd: 0.8 cm (0.6 - 1.1) IVSs: 1.1 cm LVIDs: 3.1 cm LVPWs: 0.9 cm LAESV Index (A-L): 42.76 ml/m Ao Diam: 3.2 cm (2.0 - 3.7) LA Diam: 3.2 cm (2.7 - 3.8) MV EXCURSION: 21.150 mm (> 18.000) MV EF SLOPE: 80 mm/s (70 - 150) EPSS: 1.6 cm MV E Nick: 0.42 m/s MV DecT: 436 ms MV A Nick: 0.92 m/s MV E/A Ratio: 0.46 RAP: 5.00 mmHg RVSP: 30.62 mmHg FINDINGS -------- Sinus rhythm. This was a technically good study. There is mild concentric left ventricular hypertrophy. Overall left ventricular systolic function is moderate-severely impaired with, an EF between 30 - 35 %. Anterseptal Hypokinesis Posterior hypokinesis Inferior Hypokinesis The right ventricle is normal in size. LA is severely dilated >40 ml/m2 The right atrial size is normal. There is mild aortic valve sclerosis. There is no evidence of aortic regurgitation. Mild mitral annular calcification present. Mild mitral regurgitation is present. Mild tricuspid regurgitation present. There is no evidence of pulmonary hypertension. The right ventricular systolic pressure, as measured by Doppler, is 30.62mmHg. The aortic root size is normal. There is no pericardial effusion. CONCLUSIONS -------- 1. There is mild concentric left ventricular hypertrophy. 2. Mild tricuspid regurgitation present. 3. There is no evidence of pulmonary hypertension. 4. The right ventricular systolic pressure, as measured by Doppler, is 30.62mmHg. 5. The aortic root size is normal. 6. There is no pericardial effusion. 7. Overall left ventricular systolic function is moderate-severely impaired with, an EF between 30 - 35 %. 8. Anterseptal Hypokinesis 9. Posterior hypokinesis 10. Inferior Hypokinesis 11. LA is severely dilated >40 ml/m2 12. There is mild aortic valve sclerosis. 13. Mild mitral annular calcification present. 14. Mild mitral regurgitation is present. OFFAL WORKER: Mini Barnhart RDCS
[2016-05-27 11:53] LABS: Hemoglobin A1C 7.1 % (4.2-6.1)
[2016-05-27 12:14] LABS: Glucose,Whole Blood 281 mg/dL (75-99)
--- NOTE | 2016-05-27 16:12 | P.PN ---
Subjective Patient is an 86-year-old female, patient of Dr. Marx in the outpatient setting, with medical history significant for coronary artery disease , heart failure, COPD, CVA, diabetes mellitus type 2, hyperlipidemia, hypertension, myocardial infarction, gout, urinary tract infection, peripheral vascular disease, right carotid blockage, and legally blind. Patient presented to the emergency department with complains of generalized weakness, decreased appetite, and not feeling well. Patient also complains of headaches for the last 2 days. No history of other neurological deficits. No history of chills, fevers, nausea, vomiting, cough, shortness of breath, or abdominal pain. CAT scan of the brain with evidence of mild enlargement of the ventricles and normal pressure type hydrocephalus with no other acute intracranial left dermatology. Patient did test positive for influenza B. Blood pressure was noted to be elevated at 221/90 upon arrival which improved with IV hydralazine and IV morphine. Patient was admitted to the medical floor with consult to neurology service and cardiology service. Upon examination, patient is feeling better. Patient currently denies headache, nausea, vomiting, shortness of breath, chest pain, abdominal pain. Patient reports good appetite. Afebrile. Blood pressure 144/48. Objective - Vital Signs Vital signs: Vital Signs Temp 97.0 F L 05/27/16 07:00 Pulse 65 05/27/16 08:00 Resp 16 05/27/16 08:00 BP 144/48 05/27/16 07:00 Pulse Ox 96 05/27/16 07:00 Intake & Output 05/26/16 05/27/16 05/27/16 18:59 06:59 18:59 Intake Total 1300 100 Balance 1300 100 Intake: Intake, IV Titration 800 Amount Sodium Chloride 0.9% 1, 800 000 ml @ 100 mls/hr IV . Q10H STA Rx#:[id number] Oral 500 100 Other: Voiding Method Bedside Commode # Voids 3 1 1 - Exam GENERAL: Pt awake and alert, lying in bed, well-nourished, and in no acute distress. HEAD: Atraumatic, normocephalic. EYES: Pupils equal and round. Sclera anicteric, conjunctiva are normal. ENT: Moist mucous membranes. Tongue smooth, pink, no lesions, protrudes in midline. NECK: Supple without lymphadenopathy or JVD. LUNGS: Breath sounds clear to auscultation bilaterally. No wheezes, rales, or rhonchi. HEART: Heart S1, S2, no S3 or S4. Regular rate and rhythm. No murmurs, rubs or gallops. ABDOMEN: Soft, nontender, nondistended, normoactive bowel sounds. No guarding, no rebound. EXTREMITIES: Palpable peripheral pulses. No edema. No calf tenderness. NEUROLOGICAL: Pt oriented x 3. No focal deficits. Strength and sensation grossly intact. PSYCH: Normal mood, normal affect. SKIN: Warm, dry, intact. Normal turgor. - Labs CBC & Chem 7: 05/27/16 08:39 05/27/16 08:39 Labs: Abnormal Lab Results - Last 24 Hours (Table) 05/26/16 05/26/16 05/27/16 Range/Units 17:20 21:15 07:16 RBC (3.80-5.40) m/uL MCV (80.0-100.0) fL BUN (7-17) mg/dL Glucose (74-99) mg/dL POC Glucose (mg/dL) 236 H 168 H 54 L (75-99) mg/dL Hemoglobin A1c (4.2-6.1) % HDL Cholesterol (40-60) mg/dL 05/27/16 05/27/16 05/27/16 Range/Units 08:39 08:39 08:39 RBC 3.71 L (3.80-5.40) m/uL MCV 102.3 H (80.0-100.0) fL BUN 31 H (7-17) mg/dL Glucose 212 H (74-99) mg/dL POC Glucose (mg/dL) (75-99) mg/dL Hemoglobin A1c 7.1 H (4.2-6.1) % HDL Cholesterol 69 H (40-60) mg/dL 05/27/16 Range/Units 12:07 RBC (3.80-5.40) m/uL MCV (80.0-100.0) fL BUN (7-17) mg/dL Glucose (74-99) mg/dL POC Glucose (mg/dL) 281 H (75-99) mg/dL Hemoglobin A1c (4.2-6.1) % HDL Cholesterol (40-60) mg/dL Assessment and Plan Plan: Impression and plan: 1. Hypertensive urgency, present on admission, improved. Cardiology consult in place, recommendations noted. Patient has been started on Norvasc 5 mg by mouth daily. 2. Influenza B. Continue Tamiflu. 3. Cerebral ventriculomegaly with history of headache. Neurology consult in place, recommendations noted. Patient does not have classical triad for NPH. 4. Chronic renal failure, stage III. 5. Type 2 diabetes mellitus, insulin-dependent. Hemoglobin A1c 7.1. Continue Accu-Cheks before meals at bedtime with Humalog sliding scale and Humulin 70/30 15 units subcu twice a day. 6. Hypertension. 7. Coronary artery disease with history of coronary artery bypass grafting. Continue aspirin 81 mg twice a day. 8. Chronic systolic heart failure. Overall left ventricular systolic function moderately to severely impaired with an EF between 30-35%. Continue Lasix 40 mg by mouth daily. 9. Dyslipidemia. Continue Lipitor 40 mg by mouth daily. 10. History of gout. Continue allopurinol 300 mg by mouth daily. 11. History of CVA. 12. Legally blind. 13. History of myocardial infarction. 14. History of urinary incontinence. 15. History of peripheral vascular disease. 16. History of right carotid blockage, patient nonsurgical candidate. 17. Nicotine dependence. 18. DVT prophylaxis. Continue heparin subcu and pneumatic compression sleeves to bilateral lower extremities. 19. GI prophylaxis. Continue Pepcid. 20. Repeat CBC and BMP in a.m. Discharge planning to home with home care within next 24 hours pending clinical course. The above impression and plan have been discussed and directed by Dr. Patel. Rustam ALDANA acting as scribe for Dr. Patel.
[2016-05-27 17:04] LABS: Glucose,Whole Blood 172 mg/dL (75-99)
--- NOTE | 2016-05-27 18:08 | P.PN ---
Subjective This patient is a 86-year-old right-handed white female who was seen in neurology consultation yesterday for evaluation of headache and computed tomography scan brain results. Her CAT scan of the brain was reviewed yesterday and revealed mild ventriculomegaly. Her clinical and exam findings yesterday do not indicate evidence for normal pressure hydrocephalus. She does not have the classical triad for this condition. She was admitted more for hypertensive urgency. She is also being treated for influenza B and is currently taking Tamiflu. Patient continues to do quite well overall and her blood pressures have come down significantly. This is also cause a reduction in her headaches. She is legally blind but is able to follow some simple commands easily. She denies any new symptoms today. She does have a history of chronic systolic heart failure and is being treated for this condition aggressively. As noted her clinical history is more suggestive of a hypertensive encephalopathy which is gradually improving today her blood pressure this evening is noted to be normotensive. We will continue close neurological follow-up for this patient during this admission. Objective - Vital Signs Vital signs: Vital Signs Temp 96.7 F L 05/27/16 15:00 Pulse 65 05/27/16 16:17 Resp 16 05/27/16 16:17 BP 124/55 05/27/16 15:00 Pulse Ox 93 L 05/27/16 15:00 Intake & Output 05/26/16 05/27/16 05/27/16 18:59 06:59 18:59 Intake Total 1300 100 100 Balance 1300 100 100 Intake: Intake, IV Titration 800 Amount Sodium Chloride 0.9% 1, 800 000 ml @ 100 mls/hr IV . Q10H STA Rx#:[id number] Oral 500 100 100 Other: Voiding Method Bedside Commode # Voids 3 1 3 - Exam Physical examination: PHYSICAL EXAMINATION: Patient is resting comfortably in bed. VITAL SIGNS: Blood pressure is [124/55]. Heart rate is [56]. Respiration is [16] . Temperature is [96.7]. HEENT: Head is atraumatic, neck is supple, there were no carotid bruits. CHEST: Lungs are clear to auscultation and percussion. CARDIAC: S1, S2 normal rate and rhythm. There is no murmur. ABDOMEN: Soft and nontender. Bowel sounds are present. EXTREMITIES: There is no pedal edema. Peripheral pulses are present. Neurological examination: Patient's neurological examination is unchanged from yesterday. Her resting blood pressure this evening is 124/55. - Labs CBC & Chem 7: 05/27/16 08:39 05/27/16 08:39 Labs: Abnormal Lab Results - Last 24 Hours (Table) 05/26/16 05/27/16 05/27/16 Range/Units 21:15 07:16 08:39 RBC (3.80-5.40) m/uL MCV (80.0-100.0) fL BUN (7-17) mg/dL Glucose (74-99) mg/dL POC Glucose (mg/dL) 168 H 54 L (75-99) mg/dL Hemoglobin A1c 7.1 H (4.2-6.1) % HDL Cholesterol (40-60) mg/dL 05/27/16 05/27/16 05/27/16 Range/Units 08:39 08:39 12:07 RBC 3.71 L (3.80-5.40) m/uL MCV 102.3 H (80.0-100.0) fL BUN 31 H (7-17) mg/dL Glucose 212 H (74-99) mg/dL POC Glucose (mg/dL) 281 H (75-99) mg/dL Hemoglobin A1c (4.2-6.1) % HDL Cholesterol 69 H (40-60) mg/dL 05/27/16 Range/Units 17:02 RBC (3.80-5.40) m/uL MCV (80.0-100.0) fL BUN (7-17) mg/dL Glucose (74-99) mg/dL POC Glucose (mg/dL) 172 H (75-99) mg/dL Hemoglobin A1c (4.2-6.1) % HDL Cholesterol (40-60) mg/dL Assessment and Plan (1) Hypertensive encephalopathy Status: Acute Code(s): I67.4 - HYPERTENSIVE ENCEPHALOPATHY (2) Cerebral ventriculomegaly Status: Acute Code(s): G93.89 - OTHER SPECIFIED DISORDERS OF BRAIN (3) History of stroke Status: Acute Code(s): Z86.73 - PRSNL HX OF TIA (TIA), AND CEREB INFRC W/O RESID DEFICITS (4) Hypertension Status: Acute Code(s): I10 - ESSENTIAL (PRIMARY) HYPERTENSION Plan: This patient is a pleasant 86-year-old female was admitted to hospital for generalized weakness and headache. She underwent a computed tomography scan of the brain which was reviewed in detail yesterday with the patient. CAT scan reveals only mild ventriculomegaly. There is no evidence of obstructive hydrocephalus. Also there is no clinical findings to suggest normal pressure hydrocephalus for this patient. She continues to do well and is being treated for hypertensive urgency. Her blood pressure this evening is normotensive. She is doing well and is being considered for possible discharge home in the next 24 hours. Patient denies any other new symptoms today as noted she is not having headache and her blood pressures are under very good control. We will continue close neurological follow-up for this patient during this admission. Her overall prognosis at this time remains guarded.
[2016-05-27 21:57] LABS: Glucose,Whole Blood 242 mg/dL (75-99)
[2016-05-27] MEDS: diphenhydrAMINE 25 MG CAP PO SCH (21:57)
[2016-05-27] MEDS: ALPRAZolam 0.25 MG TAB PO SCH (21:57)
[2016-05-28] MEDS: INSULIN LISPRO (humaLOG) 300 UNIT/3 ML VIAL SQ SCH ×2 (07:47→12:41)
[2016-05-28 07:52] LABS: Glucose,Whole Blood 49 mg/dL (75-99)
[2016-05-28 07:52] LABS: Glucose,Whole Blood 58 mg/dL (75-99)
[2016-05-28 08:00] VITALS: PULSE 55; TEMP 98.7
[2016-05-28 08:22] LABS: Glucose,Whole Blood 125 mg/dL (75-99)
[2016-05-28] MEDS: NICOTINE 14MG/24HR PATCH TRANSDERM SCH (08:25)
[2016-05-28] MEDS: amLODIPine 5 MG TAB PO SCH (08:26)
[2016-05-28] MEDS: ASPIRIN 81 MG CHEW PO SCH (08:26)
[2016-05-28] MEDS: ALLOPURINOL 300 MG TAB PO SCH (08:26)
[2016-05-28] MEDS: ATORVASTATIN 40 MG TAB PO SCH (08:26)
[2016-05-28] MEDS: HEPARIN SODIUM,PORCINE 5,000 UNIT/ML 1 ML VIAL SQ SCH (08:27)
[2016-05-28] MEDS: INSULIN NPH/REG INSULIN 70/30 300 UNIT/3 ML VIAL SQ SCH (08:27)
[2016-05-28] MEDS: FUROSEMIDE 40 MG TAB PO SCH (08:27)
[2016-05-28] MEDS: FAMOTIDINE 20 MG TAB PO SCH (08:27)
[2016-05-28] MEDS: POTASSIUM CHLORIDE ER 10 MEQ TAB.ER.PRT PO SCH (08:28)
[2016-05-28] MEDS: OSELTAMIVIR 60 MG/10 ML ORAL SYRINGE PO SCH (09:08)
[2016-05-28] MEDS ORDERED: LISINOPRIL 5 MG TAB PO SCH (10:45)
[2016-05-28 11:17] LABS: Calcium 8.8 mg/dL (8.4-10.2); Potassium 4.3 mmol/L (3.5-5.1)
[2016-05-28 11:56] VITALS: BP 142/60
[2016-05-28 12:31] LABS: Glucose,Whole Blood 218 mg/dL (75-99)
--- NOTE | 2016-05-28 14:06 | P.DS ---
Providers Date of admission: 05/25/16 22:35 Expected date of discharge: 05/28/16 Attending physician: Barry Marx Consults: 05/26/16 09:02 Consult Physician Urgent Consulting Provider: Baron Alvarado Consult Reason/Comments: uncontrolled hypertension Do you want consulting provider notified?: Yes Primary care physician: [facility] Course: Patient is an 86-year-old female, patient of Dr. Marx in the outpatient setting, with medical history significant for coronary artery disease , heart failure, COPD, CVA, diabetes mellitus type 2, hyperlipidemia, hypertension, myocardial infarction, gout, urinary tract infection, peripheral vascular disease, right carotid blockage, and legally blind. Patient presented to the emergency department with complains of generalized weakness, decreased appetite, and not feeling well. Patient also complains of headaches for the last 2 days. No history of other neurological deficits. No history of chills, fevers, nausea, vomiting, cough, shortness of breath, or abdominal pain. CAT scan of the brain with evidence of mild enlargement of the ventricles and normal pressure type hydrocephalus with no other acute intracranial left dermatology. Patient did test positive for influenza B. Blood pressure was noted to be elevated at 221/90 upon arrival which improved with IV hydralazine and IV morphine. Patient was admitted to the medical floor with consult to neurology service did not feel that patient had classical triad for NPH. Cardiology was also consulted for hypertensive urgency and patient was started on Norvasc 5 mg by mouth daily and lisinopril 5 mg by mouth daily. Patient did have an echocardiogram with Doppler that showed overall left ventricular systolic function with moderate to severely impaired with an EF between 30-35%. Patient improved significantly during her hospital stay with antibiotics, supportive treatment, and adjustment in blood pressure medications. Patient will need BMP in the outpatient setting to monitor renal function after starting lisinopril. Patient was deemed stable for discharge to home with home care. Patient agreed with treatment plan. Discharge diagnoses: 1. Hypertensive urgency, present on admission, improved. 2. Influenza B. 3. Cerebral ventriculomegaly with history of headache. 4. Chronic renal failure, stage III. 5. Type 2 diabetes mellitus, insulin-dependent. 6. Hypertension. 7. Coronary artery disease with history of coronary artery bypass grafting. 8. Chronic systolic heart failure. 9. Dyslipidemia. 10. History of gout. 11. 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 12. Legally blind. 13. History of myocardial infarction. 14. History of urinary incontinence. 15. History of peripheral vascular disease. 16. History of right carotid blockage, patient nonsurgical candidate. 17. Nicotine dependence. The above impression and plan have been discussed and directed by Dr. Patel. Rustam ALDANA acting as scribe for Dr. Patel. Pertinent Studies: Brain CT; EKG; echocardiogram with Doppler Patient Condition at Discharge: Good Plan - Discharge Summary New Discharge Prescriptions: Lisinopril [Zestril] 5 mg PO DAILY #30 tab Oseltamivir 6Mg/ml Oral Susp [Tamiflu] 30 mg PO DAILY #1 oral.syrg amLODIPine [Norvasc] 5 mg PO DAILY #30 tab Discharge Medication List ALPRAZolam [Xanax] 0.25 mg PO HS 12/14/13 [History] Acetaminophen/Diphenhydramine [Tylenol PM 500-25mg] 1 tab PO HS 12/14/13 [ History] Allopurinol [Zyloprim] 300 mg PO DAILY 12/14/13 [History] Aspirin 81 mg PO BID 12/14/13 [History] Insulin NPH Hum/Reg Insulin Hm [NovoLIN 70-30 100 UNIT/ML VIAL] 15 unit SQ BID 12/14/13 [History] Potassium Chloride [K-Tab ER] 10 meq PO DAILY 12/14/13 [History] Simvastatin [Zocor] 80 mg PO DAILY 12/14/13 [History] ALPRAZolam [Xanax] 0.25 mg PO TID PRN 12/15/13 [History] Nitroglycerin Sl Tabs [Nitrostat] 0.4 mg SL Q5M PRN 12/15/13 [History] Albuterol Nebulized [Ventolin Nebulized] 2.5 mg INHALATION RT-TID PRN 05/25/16 [ History] Furosemide [Lasix] 40 mg PO DAILY 05/25/16 [History] Lisinopril [Zestril] 5 mg PO DAILY #30 tab 05/28/16 [Rx] Oseltamivir 6Mg/ml Oral Susp [Tamiflu] 30 mg PO DAILY #1 oral.syrg 05/28/16 [Rx] amLODIPine [Norvasc] 5 mg PO DAILY #30 tab 05/28/16 [Rx] Follow up Appointment(s)/Referral(s): [facility] [Provider Group] - 06/05/16 2:30 pm ([facility]) Whit Lima MD [STAFF PHYSICIAN] - 06/11/16 10:15 am Barry Marx Jr, DO [Primary Care Provider] - 06/02/16 1:00 pm [facility] Nurse, [NON-STAFF] - Ambulatory/Diagnostic Orders: Basic Metabolic Panel [LAB.AMB] Time Frame: 06/01/16, Location: Determined By Patient Patient Instructions/Handouts: Heart Failure (DC), Influenza (DC), Hydrocephalus (DC) Activity/Diet/Wound Care/Special Instructions: Cardiac, diabetic diet Discharge Disposition: HOME WITH HOME HEALTH SERVICES
== END 2016-05-28 15:18 | disposition home health service (06) ==
LOC: EC 18:01 → 4MS4W 22:35
PROVIDERS: ADMIT Family Medicine; ATTEND Family Medicine
DX: I16.0 Hypertensive urgency (principal); J10.1 Influenza due to other identified influenza virus with other respiratory manifestations; G93.89 Other specified disorders of brain; I25.2 Old myocardial infarction; I13.0 Hypertensive heart and chronic kidney disease with heart failure and stage 1 through stage 4 chronic kidney disease, or unspecified chronic kidney disease; E11.22 Type 2 diabetes mellitus with diabetic chronic kidney disease; N18.3 Chronic kidney disease, stage 3 (moderate); I50.22 Chronic systolic (congestive) heart failure; Z79.4 Long term (current) use of insulin; H54.8 Legal blindness, as defined in USA; E78.5 Hyperlipidemia, unspecified; I25.10 Atherosclerotic heart disease of native coronary artery without angina pectoris; I44.0 Atrioventricular block, first degree; I67.4 Hypertensive encephalopathy; I73.9 Peripheral vascular disease, unspecified; J44.9 Chronic obstructive pulmonary disease, unspecified; M10.9 Gout, unspecified; Z79.82 Long term (current) use of aspirin; Z95.1 Presence of aortocoronary bypass graft; I69.398 Other sequelae of cerebral infarction; F17.200 Nicotine dependence, unspecified, uncomplicated; I65.21 Occlusion and stenosis of right carotid artery; Z79.899 Other long term (current) drug therapy; Z88.5 Allergy status to narcotic agent; Z88.8 Allergy status to other drugs, medicaments and biological substances; Z91.041 Radiographic dye allergy status
CPT/HCPCS: 93005; 93306; 83880; 36415; 80061; 80053; 80048 ×2; 83036; 82550; 82553; 83605; 83735; 84100; 84443; 84484; 85025 ×2; 85610; 85730; 81003; 87086; 87502; 70450; 99285; 96374; 96375; 96376; 96361; G0378 ×4; S4990 ×3; J2270; J0360; J1644 ×3; 96372

== ENCOUNTER 2019-03-21 10:19 | Emergency (ER) | payer MEDICARE, BC ==
[2019-03-21 10:23] VITALS: TEMP 97.5
[2019-03-21] MEDS ORDERED: SODIUM CHLORIDE 0.9% 500 ML 500 ML IV STA (10:41)
--- NOTE | 2019-03-21 11:01 | ED ---
General Adult HPI - General Chief complaint: Weakness Stated complaint: poss UTI/shaky/confusion Time Seen by Provider: 03/21/19 10:23 Source: patient, RN notes reviewed, old records reviewed Mode of arrival: wheelchair Limitations: no limitations - History of Present Illness Initial comments: 88-year-old female presenting for evaluation of increased confusion. Patient alert and oriented the time my evaluation. According to her son who is at bedside she's had absolutely 1 week of increased confusion, not knowing where she has when she is in her home. She lives in an assisted living facility. She has previous history of diabetes, chronic kidney disease, and previous stroke. She is completely blind. She has no complaints. No headache. No focal numbness or weakness. She complains of generalized weakness. She denies chest pain. Denies dyspnea. Denies cough. Denies abdominal pain. Denies nausea vomiting or diarrhea. Denies dysuria or urinary frequency. Denies fever. She states she has been eating and drinking normally and has a good appetite. - Related Data Home Medications Medication Instructions Recorded Confirmed ALPRAZolam [Xanax] 0.25 mg PO HS 12/14/13 03/21/19 Allopurinol [Zyloprim] 300 mg PO DAILY 12/14/13 03/21/19 Aspirin 81 mg PO BID 12/14/13 03/21/19 Insulin NPH Hum/Reg Insulin Hm 18 unit SQ BID 12/14/13 03/21/19 [NovoLIN 70-30 100 UNIT/ML VIAL] Potassium Chloride [K-Tab ER] 10 meq PO DAILY 12/14/13 03/21/19 Simvastatin [Zocor] 80 mg PO DAILY 12/14/13 03/21/19 ALPRAZolam [Xanax] 0.25 mg PO TID PRN 12/15/13 03/21/19 Nitroglycerin Sl Tabs [Nitrostat] 0.4 mg SL Q5M PRN 12/15/13 03/21/19 Furosemide [Lasix] 40 mg PO DAILY 05/25/16 03/21/19 Cholecalciferol [Vitamin D3 (25 2,000 unit PO DAILY 03/21/19 03/21/19 Mcg = 1000 Iu)] diphenhydrAMINE [Benadryl] 50 mg PO HS 03/21/19 03/21/19 Allergies Allergy/AdvReac Type Severity Reaction Status Date / Time codeine Allergy Unknown Verified 03/21/19 12:30 hydrochlorothiazide Allergy Rash/Hives Verified 03/21/19 12:30 [From Aldactazide] Iodinated Contrast Media Allergy Unknown Verified 03/21/19 12:30 [Iodinated Contrast Media - IV Dye] spironolactone Allergy Rash/Hives Verified 03/21/19 12:30 [From Aldactazide] Review of Systems ROS Statement: Those systems with pertinent positive or pertinent negative responses have been documented in the HPI. ROS Other: All systems not noted in ROS Statement are negative. 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 Last Myocardial Infarction Date:: 1986 History of Any Multi-Drug Resistant Organisms: None Reported Past Surgical History: Breast Surgery, Cholecystectomy, Coronary Bypass/CABG, Hysterectomy, Orthopedic Surgery Additional Past Surgical History / Comment(s): . LUMPECTOMY-BENIGN MASS.RT ARM WAS BROKEN HAD ORIF HAS PLATE/SCREWS. carpal tnnel, CATARARCTS. LT CAROTID ENDARTERECTOMY Past Anesthesia/Blood Transfusion Reactions: No Reported Reaction Past Psychological History: No Psychological Hx Reported Smoking Status: Former smoker Past Alcohol Use History: None Reported Past Drug Use History: None Reported - Past Family History Father Family Medical History: Myocardial Infarction ([place]), Pulmonary Embolus Additional Family Medical History / Comment(s): AT AGE 72-STROKE Mother Family Medical History: CVA/TIA Additional Family Medical History / Comment(s): AT AGE 67- CEREBRAL HEMMORAGE General Exam Limitations: no limitations General appearance: alert, in no apparent distress Head exam: Present: atraumatic, normocephalic Eye exam: Absent: scleral icterus, periorbital swelling, periorbital tenderness ENT exam: Present: normal exam, mucous membranes dry Neck exam: Present: normal inspection, tenderness Respiratory exam: Present: normal lung sounds bilaterally. Absent: respiratory distress, wheezes Cardiovascular Exam: Present: regular rate, normal rhythm GI/Abdominal exam: Present: soft. Absent: distended, tenderness Extremities exam: Present: normal inspection, normal capillary refill. Absent: pedal edema Neurological exam: Present: alert, oriented X3, CN II-XII intact. Absent: motor sensory deficit Psychiatric exam: Present: normal affect, normal mood Skin exam: Present: warm, dry, intact. Absent: cyanosis, diaphoretic Course Vital Signs 03/21/19 03/21/19 10:20 12:59 Temperature 97.5 F L Pulse Rate 88 76 Respiratory 18 16 Rate Blood Pressure 200/73 167/60 O2 Sat by Pulse 96 99 Oximetry EKG Findings - EKG Comments: EKG Findings:: EKG: Sinus rhythm with first-degree block, occasional PVC, LVH, rate of 68, NE interval 238, QRS duration 98, QTC 457, no ST segment elevation, similar appearance to previous EKG in April 2016. Medical Decision Making - Medical Decision Making 88-year-old female presenting with episodes of intermittent confusion. She is at her baseline at the time my evaluation. She is legally blind with no other neurological deficits. She has head CT which is negative for intracranial hemorrhage or mass effect. Chest x-ray negative for acute cardiopulmonary disease per chest mild leukocytosis no specific focus of infection. She has a creatinine 1.19 which is at baseline. She hasn't minimally elevated initial troponin of 0.07, this is trended and is down trending 0.063. I discussed case with her primary care physician Dr. Marx who is very familiar with this patient. All parties involved myself Dr. Marx, the patient and the patient's grandson all agreed with discharge and close outpatient follow-up. Mild troponin elevation, down trending, no chest pain, no EKG changes. Dr. Marx states that some mild confusion is typical in this patient. - Lab Data Result diagrams: 03/21/19 10:49 03/21/19 10:49 Lab Results 03/21/19 03/21/19 03/21/19 Range/Units 10:49 10:49 10:49 WBC 13.0 H (3.8-10.6) k/uL RBC 3.85 (3.80-5.40) m/uL Hgb 12.4 (11.4-16.0) gm/dL Hct 36.4 (34.0-46.0) % MCV 94.6 (80.0-100.0) fL MCH 32.2 (25.0-35.0) pg MCHC 34.0 (31.0-37.0) g/dL RDW 14.4 (11.5-15.5) % Plt Count 217 (150-450) k/uL Neutrophils % 74 % Lymphocytes % 16 % Monocytes % 6 % Eosinophils % 3 % Basophils % 0 % Neutrophils # 9.5 H (1.3-7.7) k/uL Lymphocytes # 2.1 (1.0-4.8) k/uL Monocytes # 0.7 (0-1.0) k/uL Eosinophils # 0.4 (0-0.7) k/uL Basophils # 0.1 (0-0.2) k/uL PT (9.0-12.0) sec INR (<1.2) APTT (22.0-30.0) sec Sodium 140 (137-145) mmol/L Potassium 4.4 (3.5-5.1) mmol/L Chloride 105 (98-107) mmol/L Carbon Dioxide 27 (22-30) mmol/L Anion Gap 8 mmol/L BUN 42 H (7-17) mg/dL Creatinine 1.19 H (0.52-1.04) mg/dL Est GFR (CKD-EPI)AfAm 47 (>60 ml/min/1.73 sqM) Est GFR (CKD-EPI)NonAf 41 (>60 ml/min/1.73 sqM) Glucose 104 H (74-99) mg/dL Plasma Lactic Acid [place] 1.0 (0.7-2.0) mmol/L Calcium 9.7 (8.4-10.2) mg/dL Magnesium 1.9 (1.6-2.3) mg/dL Total Bilirubin 0.6 (0.2-1.3) mg/dL AST 23 (14-36) U/L ALT 11 (4-34) U/L Alkaline Phosphatase 99 (38-126) U/L Troponin I (0.000-0.034) ng/mL Total Protein 6.6 (6.3-8.2) g/dL Albumin 3.8 (3.5-5.0) g/dL Urine Color Urine Appearance (Clear) Urine pH (5.0-8.0) Ur Specific [place] (1.001-1.035) Urine Protein (Negative) Urine Glucose (UA) (Negative) Urine Ketones (Negative) Urine Blood (Negative) Urine Nitrite (Negative) Urine Bilirubin (Negative) Urine Urobilinogen (<2.0) mg/dL Ur Leukocyte Esterase (Negative) Urine WBC (0-5) /hpf 03/21/19 03/21/19 03/21/19 Range/Units 10:49 10:49 12:16 WBC (3.8-10.6) k/uL RBC (3.80-5.40) m/uL Hgb (11.4-16.0) gm/dL Hct (34.0-46.0) % MCV (80.0-100.0) fL MCH (25.0-35.0) pg MCHC (31.0-37.0) g/dL RDW (11.5-15.5) % Plt Count (150-450) k/uL Neutrophils % % Lymphocytes % % Monocytes % % Eosinophils % % Basophils % % Neutrophils # (1.3-7.7) k/uL Lymphocytes # (1.0-4.8) k/uL Monocytes # (0-1.0) k/uL Eosinophils # (0-0.7) k/uL Basophils # (0-0.2) k/uL PT 10.4 (9.0-12.0) sec INR 1.0 (<1.2) APTT 22.4 (22.0-30.0) sec Sodium (137-145) mmol/L Potassium (3.5-5.1) mmol/L Chloride (98-107) mmol/L Carbon Dioxide (22-30) mmol/L Anion Gap mmol/L BUN (7-17) mg/dL Creatinine (0.52-1.04) mg/dL Est GFR (CKD-EPI)AfAm (>60 ml/min/1.73 sqM) Est GFR (CKD-EPI)NonAf (>60 ml/min/1.73 sqM) Glucose (74-99) mg/dL Plasma Lactic Acid [place] (0.7-2.0) mmol/L Calcium (8.4-10.2) mg/dL Magnesium (1.6-2.3) mg/dL Total Bilirubin (0.2-1.3) mg/dL AST (14-36) U/L ALT (4-34) U/L Alkaline Phosphatase (38-126) U/L Troponin I 0.070 H* (0.000-0.034) ng/mL Total Protein (6.3-8.2) g/dL Albumin (3.5-5.0) g/dL Urine Color Light Yellow Urine Appearance Clear (Clear) Urine pH 6.5 (5.0-8.0) Ur Specific [place] 1.004 (1.001-1.035) Urine Protein 1+ H (Negative) Urine Glucose (UA) Negative (Negative) Urine Ketones Negative (Negative) Urine Blood Negative (Negative) Urine Nitrite Negative (Negative) Urine Bilirubin Negative (Negative) Urine Urobilinogen <2.0 (<2.0) mg/dL Ur Leukocyte Esterase Negative (Negative) Urine WBC 3 (0-5) /hpf 03/21/ Range/Units 14:14 WBC (3.8-10.6) k/uL RBC (3.80-5.40) m/uL Hgb (11.4-16.0) gm/dL Hct (34.0-46.0) % MCV (80.0-100.0) fL MCH (25.0-35.0) pg MCHC (31.0-37.0) g/dL RDW (11.5-15.5) % Plt Count (150-450) k/uL Neutrophils % % Lymphocytes % % Monocytes % % Eosinophils % % Basophils % % Neutrophils # (1.3-7.7) k/uL Lymphocytes # (1.0-4.8) k/uL Monocytes # (0-1.0) k/uL Eosinophils # (0-0.7) k/uL Basophils # (0-0.2) k/uL PT (9.0-12.0) sec INR (<1.2) APTT (22.0-30.0) sec Sodium (137-145) mmol/L Potassium (3.5-5.1) mmol/L Chloride (98-107) mmol/L Carbon Dioxide (22-30) mmol/L Anion Gap mmol/L BUN (7-17) mg/dL Creatinine (0.52-1.04) mg/dL Est GFR (CKD-EPI)AfAm (>60 ml/min/1.73 sqM) Est GFR (CKD-EPI)NonAf (>60 ml/min/1.73 sqM) Glucose (74-99) mg/dL Plasma Lactic Acid [place] (0.7-2.0) mmol/L Calcium (8.4-10.2) mg/dL Magnesium (1.6-2.3) mg/dL Total Bilirubin (0.2-1.3) mg/dL AST (14-36) U/L ALT (4-34) U/L Alkaline Phosphatase (38-126) U/L Troponin I 0.063 H* (0.000-0.034) ng/mL Total Protein (6.3-8.2) g/dL Albumin (3.5-5.0) g/dL Urine Color Urine Appearance (Clear) Urine pH (5.0-8.0) Ur Specific [place] (1.001-1.035) Urine Protein (Negative) Urine Glucose (UA) (Negative) Urine Ketones (Negative) Urine Blood (Negative) Urine Nitrite (Negative) Urine Bilirubin (Negative) Urine Urobilinogen (<2.0) mg/dL Ur Leukocyte Esterase (Negative) Urine WBC (0-5) /hpf Disposition Clinical Impression: Confusion, Elevated troponin Disposition: HOME SELF-CARE Condition: Fair Instructions (If sedation given, give patient instructions): Altered Mental Status (ED) Is patient prescribed a controlled substance at d/c from ED?: No Referrals: Barry Marx Jr, [Primary Care Provider] - 1-2 days Time of Disposition: 15:15
[2019-03-21 11:37] LABS: Basophils # (A) 0.1 k/uL (0-0.2); Basophils % (A) 0 %; Eosinophils # (A) 0.4 k/uL (0-0.7); Eosinophils % (A) 3 %; HCT 36.4 % (34.0-46.0); HGB 12.4 gm/dL (11.4-16.0); Lymphocytes # (A) 2.1 k/uL (1.0-4.8); Lymphocytes % (A) 16 %; MCH 32.2 pg (25.0-35.0); MCV 94.6 fL (80.0-100.0); Mean Platelet Volume 8.6; Monocytes # (A) 0.7 k/uL (0-1.0); Monocytes % (A) 6 %; Neutrophils # (A) 9.5 k/uL (1.3-7.7); Neutrophils % (A) 74 %; Platelet Count 217 k/uL (150-450); RBC 3.85 m/uL (3.80-5.40); RDW 14.4 % (11.5-15.5)
--- NOTE | 2019-03-21 11:39 | CT ---
EXAMINATION TYPE: CT brain wo con DATE OF EXAM: 03/21/2019 HISTORY: Altered mental status. CT DLP: 1023.4 mGycm. Automated Exposure Control for Dose Reduction was Utilized. TECHNIQUE: CT scan of the head is performed without contrast. COMPARISON: CT brain May 25, 2016 FINDINGS: There is no acute intracranial hemorrhage or midline shift identified. There is diffuse v entricular and sulcal prominence consistent with diffuse age-related cerebral atrophy. Findings most prominent over the bilateral frontal lobes. Ventricle size unchanged from prior. Piedra-white matter di fferentiation fairly well-maintained. Scleral calcification bilateral globes redemonstrated. Visualiz ed sinuses are clear. IMPRESSION: No acute intracranial hemorrhage or midline shift. There is moderate diffuse cerebral a trophy most prominent over the bilateral frontal lobes redemonstrated. No significant change from neelima or CT.
[2019-03-21 11:40] LABS: Albumin 3.8 g/dL (3.5-5.0); Calcium 9.7 mg/dL (8.4-10.2); Magnesium 1.9 mg/dL (1.6-2.3); Potassium 4.4 mmol/L (3.5-5.1); Total Bilirubin 0.6 mg/dL (0.2-1.3); Total Protein 6.6 g/dL (6.3-8.2)
[2019-03-21 11:42] LABS: Partial Thromboplastin Time 22.4 sec (22.0-30.0); Prothrombin Time 10.4 sec (9.0-12.0)
--- NOTE | 2019-03-21 11:50 | XR ---
EXAMINATION TYPE: XR chest 2V DATE OF EXAM: 03/21/2019 COMPARISON: Chest x-ray June 07, 2014. HISTORY: Dyspnea and weakness. TECHNIQUE: Frontal and lateral views of the chest are obtained. FINDINGS: There is chronic critical change bilaterally without suspicious new focal air space opacit y, pleural effusion, or pneumothorax seen. The cardiac silhouette size is enlarged with atherosclero tic aorta. Overlying Sternal wires and mediastinal clips are present. The osseous structures remain demineralized. Partial visualization of surgical change right humerus. IMPRESSION: Chronic parenchymal changes and cardiomegaly without acute pulmonary process.
[2019-03-21] MEDS ORDERED: ASPIRIN 325 MG TAB PO STA (12:04)
[2019-03-21] MEDS ORDERED: SODIUM CHLORIDE 0.9% 1,000 ML IV SCH (12:15)
[2019-03-21 12:48] LABS: Appearance,Urine Clear (Clear); Bilirubin,Urine Negative (Negative); Blood,Urine Negative (Negative); Color,Urine Light Yellow; Glucose,Urine (UA) Negative (Negative); Ketones,Urine Negative (Negative); Leukocyte Esterase,Urine Negative (Negative); Nitrite,Urine Negative (Negative); PH, Urine 6.5 (5.0-8.0); Protein,Urine 1+ (Negative); Specific Gravity,Urine 1.004 (1.001-1.035); Urobilinogen,Urine <2.0 mg/dL (<2.0); WBC,Urine 3 /hpf (0-5)
[2019-03-21 15:52] VITALS: BP 151/60; PULSE 71; RESP 18
== END 2019-03-21 15:50 | disposition home or self-care (01) ==
LOC: EC 10:19
DX: R41.0 Disorientation, unspecified (principal); R79.89 Other specified abnormal findings of blood chemistry; R53.1 Weakness; H54.8 Legal blindness, as defined in USA; I25.119 Atherosclerotic heart disease of native coronary artery with unspecified angina pectoris; I13.0 Hypertensive heart and chronic kidney disease with heart failure and stage 1 through stage 4 chronic kidney disease, or unspecified chronic kidney disease; E11.22 Type 2 diabetes mellitus with diabetic chronic kidney disease; I50.9 Heart failure, unspecified; N18.9 Chronic kidney disease, unspecified; E78.5 Hyperlipidemia, unspecified; I25.2 Old myocardial infarction; J44.9 Chronic obstructive pulmonary disease, unspecified; Z79.82 Long term (current) use of aspirin; Z79.4 Long term (current) use of insulin; Z79.899 Other long term (current) drug therapy; Z88.5 Allergy status to narcotic agent; Z91.041 Radiographic dye allergy status; Z88.8 Allergy status to other drugs, medicaments and biological substances; Z95.1 Presence of aortocoronary bypass graft; Z87.891 Personal history of nicotine dependence; Z86.73 Personal history of transient ischemic attack (TIA), and cerebral infarction without residual deficits
CPT/HCPCS: 36415; 70450; 71046; 80053; 81001; 83605; 83735; 84484; 85025; 85610; 85730; 93005; 96360; 96361; 99285